=== PATIENT | female | born 1930 | race Caucasian/White ===

== ENCOUNTER 2018-06-15 05:10 | Emergency (ER) | payer OTHER ==
[~2018-06-15] VITALS: Ht 149.9 cm; Wt 70.3 kg
[2018-06-15 07:01] LABS: Basophils # (auto) 0.1 uL; Basophils % (auto) 0.8 % (0.0-2.0); Eosinophils # (auto) 0.1 uL; Eosinophils % (auto) 0.8 % (0.0-7.0); Hematocrit 46.9 % (36.0-46.0); Hemoglobin 15.4 g/dL (12.2-16.2); Lymphocytes # (auto) 2.6 uL; Lymphocytes % (auto) 16.4 % (10.0-50.0); Mean Corpuscular Hemoglobin 30.1 pg (28.0-32.0); Mean Corpuscular Hgb Conc. 32.8 g/dL (32.0-36.0); Mean Corpuscular Volume 91.9 fL (80.0-100.0); Monocytes # (auto) 1.3 uL; Neutrophils # (auto) 11.7 uL; Nucleated Red Blood Cells % 0.1 %; Platelet Count (auto) 212 10^3/uL (140-450); Red Cell Distribution Width 14.6 % (11.8-14.3); White Blood Cell 15.8 10^3/uL (4.4-10.8)
[2018-06-15 07:29] LABS: Albumin 3.2 g/dL (3.4-5.0); BUN/Creatinine Ratio 21.1; Calcium 9.4 mg/dL (8.5-10.1); Potassium 3.8 mmol/L (3.5-5.1)
[2018-06-15 07:32] LABS: Bilirubin, Total 0.6 mg/dL (0.2-1.0); Total Protein 7.8 g/dL (6.4-8.2)
[2018-06-15 09:47] LABS: Urine Bacteria NONE SEEN /hpf (None Seen); Urine Blood Negative /uL (Negative); Urine Mucus FEW (None Seen); Urine Specific Gravity 1.019 (1.001-1.035); Urine WBC 2 /hpf (0 - 5)
[2018-06-15] MEDS: SODIUM CHLORIDE 0.9% 1,000 ML IV ONE (10:38)
[2018-06-15] MEDS: PIPERACILLIN-TAZOB 3.375GM 100 ML IV ONE (10:54)
[2018-06-15] MEDS: VANCOMYCIN 1GM/250ML 250 ML IV ONE (10:56)
[2018-06-15 13:52] VITALS: BP 145/75
== END 2018-06-15 14:11 | disposition short-term general hospital (02) ==
LOC: EDBD 05:10 → ER 05:17
CPT/HCPCS: 36415 ×2; 74176 ×2; 80053 ×2; 81001 ×2; 83605 ×2; 85025 ×2; 87040 ×2; 94761 ×2; 96365 ×2; 99285; J3370; J7030